=== PATIENT | male | born 1970 | race African-American/Black ===

== ENCOUNTER 2021-07-12 15:19 | Emergency (ER) | payer SELFPAY ==
[~2021-07-12] VITALS: Ht 182.9 cm; Wt 73.0 kg
[2021-07-12 16:46] LABS: CLARITY URINE CLEAR (CLEAR); COLOR URINE YELLOW (YELLOW); KETONES URINE TRACE (NEGATIVE); LEUKOCYTE ESTERASE URINE NEGATIVE (NEGATIVE); NITRITE URINE NEGATIVE (NEGATIVE); OCCULT BLOOD URINE NEGATIVE (NEGATIVE); PROTEIN URINE NEGATIVE (NEGATIVE); SPECIFIC GRAVITY URINE 1.027 (1.005-1.030); UROBILINOGEN URINE 0.2 E.U./dL (0.2-1.0)
[2021-07-12] MEDS ORDERED: CEFTRIAXONE SODIUM 500 MG/VIAL IM ONE (17:00)
[2021-07-12] MEDS ORDERED: DOXY100C5 MT (17:38)
[2021-07-12 18:14] VITALS: BP 127/74
[2021-07-15 04:08] LABS: NEISSERIA GONORRHOEAE NAA Negative (Negative)
== END 2021-07-12 18:15 | disposition home or self-care (01) ==
LOC: ER 15:31
DX: N34.2 Other urethritis (principal)
CPT/HCPCS: 81003; 87491; 87591; 96372; 99283; J0696